=== PATIENT | male | born 1975 | race Hispanic/Latino ===

== ENCOUNTER → 2025-02-12 | Outpatient (CLI) | payer OTHER ==
--- NOTE | 2025-02-13 10:28 | HMCIMG ---
EXAM: CT Cardiac calcium scoring. CLINICAL HISTORY: CAD screening. TECHNIQUE: Thin collimated axial CT cardiac images were obtained. A CT scan is done according to ALARA (As Low As Reasonably Achievable). CONTRAST: None. COMPARISON: None provided. FINDINGS: Calcium Score: VESSEL Number of lesions Volume mm3 Equi. Mass/mg Calcium score LM 4 12.6 --.-- 12.9 LAD 12 124.7 --.-- 184.9 LCX 6 242.8 --.-- 303.4 RCA 31 428.2 --.-- 553.4 Total 53 808.3 --.-- 1054.7 IMPRESSION: The calcium score is 1054.7. This places the patient in the 99th percentile in comparison to a group of patients asymptomatic for coronary artery disease with the same age and gender. This means that 99% of males aged 45-49 have a calcium score that is lower than the patient's. /[place]
== END | disposition home or self-care (01) ==
LOC: RAH 01-12 13:30
PROVIDERS: ATTEND Internal Medicine Cardiovascular Disease
DX: Z13.6 Encounter for screening for cardiovascular disorders (principal); I25.10 Atherosclerotic heart disease of native coronary artery without angina pectoris
CPT/HCPCS: 75571